=== PATIENT | female | born 1980 | race Caucasian/White ===

== ENCOUNTER 2020-01-14 12:29 | Emergency (ER) | payer OTHER, SELFPAY ==
[2020-01-14 12:48] VITALS: BP 145/88; PULSE 83; RESP 16; TEMP 36.6; O2SAT 97; BMI 35.0
--- NOTE | 2020-01-14 13:47 | PC.NURSE ---
covid swab done per order
--- NOTE | 2020-01-14 14:23 | ED_ITS ---
HPI - General Adult General Chief complaint: General Medical <HENRIETTA Randle Last Filed: 01/14/20 16:38> Stated complaint: MULTIPLE COMPLAINTS <HENRIETTA Randle Last Filed: 01/14/20 16:38> Time Seen by Provider: 01/14/20 13:30 <HENRIETTA Randle Last Filed: 01/14/20 16:38> Source: patient <HENRIETTA Randle Last Filed: 01/14/20 16:38> Mode of arrival: ambulatory <HENRIETTA Randle Last Filed: 01/14/20 16:38> Limitations: no limitations <HENRIETTA Randle Last Filed: 01/14/20 16:38> History of Present Illness HPI narrative: patient presents to ED sniffles and slight body aches. Patient would like to be tested for COVID-19 virus. Patient states her care home wants her to be tested due to exposure to a positive patron in the care home. Patient's secondary complaint is bilateral chronic knee pain due to severe arthritis and lateral meniscal tears in both knees. Patient show me MRI reading from radiologist in [place] with done in july with reading that indicates severe arthritis in both knees with lateral meniscus tears. Patient was doing physical rehab, narcotics, and pain management in [place] but had to relocate to [place]. <HENRIETTA Randle Last Filed: 01/14/20 16:38> Related Data Home medications: Previous Rx's Medication Instructions Recorded naproxen 500 mg PO BID PRN #20 tab 01/14/20 oxycodone-acetaminophen [Percocet] 1 tab PO Q8H PRN #12 tab 01/14/20 <HENRIETTA Randle Last Filed: 01/14/20 16:38> Allergies/adverse reactions: Allergies Allergy/AdvReac Type Severity Reaction Status Date / Time No Known Allergies Allergy Verified 01/14/20 12:47 <HENRIETTA Randle Last Filed: 01/14/20 16:38> Review of Systems Constitutional: Constitutional: Reports as per HPI, Reports no additional constitutional complaints, Reports body ache(s), Denies chills, Denies fever(s) and Denies headache(s) <HENRIETTA Randle Last Filed: 01/14/20 16:38> Eyes: Eyes: Reports as per HPI and Reports no additional eye complaints <HENRIETTA Randle - Last Filed: 01/14/20 16:38> ENT: Reports system reviewed and no additional complaints, except as documented, Reports as per HPI and Denies headache(s) <HENRIETTA Randle - Last Filed: 01/14/20 16:38> Comments: nasal congestion <HENRIETTA Randle - Last Filed: 01/14/20 16:38> Cardiovascular: Cardiovascular: Reports as per HPI and Reports no additional cardiovascular complaints <HENRIETTA Randle - Last Filed: 01/14/20 16:38> Respiratory: Respiratory: Reports as per HPI and Reports no additional respiratory complaints <HENRIETTA Randle - Last Filed: 01/14/20 16:38> Gastrointestinal: Gastrointestinal: Reports as per HPI and Reports no additional gastrointestinal complaints <HENRIETTA Radnle - Last Filed: 01/14/20 16:38> Musculoskeletal: Musculoskeletal: Reports no additional musculoskeletal complaints and Reports as per HPI <HENRIETTA Randle Last Filed: 01/14/20 16:38> Comments: Positive for bilateral knee pain <HENRIETTA Randle Last Filed: 01/14/20 16:38> Neurologic: Reports system reviewed and no additional complaints, except as documented, Reports as per HPI and Denies headache(s) <HENRIETTA Randle Last Filed: 01/14/20 16:38> Psychiatric: Psychiatric: Reports no additional psychiatric complaints and Reports as per HPI <HENRIETTA Randle Last Filed: 01/14/20 16:38> [facility] Past Medical History Medical History: Medical History (Updated 01/15/20 @ 00:00 by Felipe Loo) Healthy adult <HENRIETTA Randle - Last Filed: 01/14/20 16:38> Social History Social History: Social History Smoked in Last 30 Days: No Use of substances other than those prescribed or required for medical reasons: No Advance Directives: No Advance Directives Information Provided: No <HENRIETTA Randle Last Filed: 01/14/20 16:38> Physical Exam Vital Signs: Vital Signs: Last Vital Signs Temp 97.9 F 01/14/20 12:48 Pulse 83 01/14/20 12:48 Resp 16 01/14/20 12:48 BP 145/88 H 01/14/20 12:48 Pulse Ox 97 01/14/20 12:48 Body Mass Index 35.0 <HENRIETTA Randle - Last Filed: 01/14/20 16:38> Vital Signs: Last Vital Signs Temp 97.9 F 01/14/20 12:48 Pulse 83 01/14/20 12:48 Resp 16 01/14/20 12:48 BP 145/88 H 01/14/20 12:48 Pulse Ox 97 01/14/20 12:48 Body Mass Index 35.0 <Marquis Cary MD - Last Filed: 01/15/20 13:21> Const: General: cooperative, healthy appearing, comfortable, no acute distress, well developed and alert <HENRIETTA Randle - Last Filed: 01/14/20 16:38> HENMT: Head: Yes normal to inspection and Yes No palpable skull fracture present <HENRIETTA Randle - Last Filed: 01/14/20 16:38> Eyes: General: appearance normal, both eyes and all related structures <HENRIETTA Randle Last Filed: 01/14/20 16:38> Visual Griffiths: normal visual griffiths by confrontation <HENRIETTA Randle Last Filed: 01/14/20 16:38> Neck: Neck: Yes normal visual inspection, Yes full ROM, Yes no lymphad enopathy, Yes no meningeal signs, Yes trachea midline and No tender <HENRIETTA Randle - Last Filed: 01/14/20 16:38> Chest: Chest palpation & inspection: normal inspection of the chest, normal palpation of entire chest wall and no localized rib tenderness <HENRIETTA Randle Last Filed: 01/14/20 16:38> Resp: Effort & Inspection: normal respiratory effort and able to speak in complete sentences <HENRIETTA Randle Last Filed: 01/14/20 16:38> Auscultation: clear to auscultation bilaterally <HENRIETTA Randle Last Filed: 01/14/20 16:38> Cardio: Jugular venous distension: no JVD <HENRIETTA Randle Last Filed: 01/14/20 16:38> Heart sounds: S1 normal heart sound present and S2 normal heart sound present <Markie Spike, PA Kyleigh Last Filed: 01/14/20 16:38> GI: Inspection: Yes normal to inspection and No abdominal wall ecchymosis <Markie Spike, PA Kyleigh Last Filed: 01/14/20 16:38> Palpation (GI): Soft to palpation, not firm, nontender, no guarding and not rigid <Markie Spike, PA Kyleigh Last Filed: 01/14/20 16:38> : General: No CVA tenderness and Yes no CVA tenderness <HENRIETTA Randle Kyleigh Last Filed: 01/14/20 16:38> Back/Spine/Pelvis: Back: no CVA tenderness, No CVA tenderness and No back tenderness <EHNRIETTA Randle Kyleigh Last Filed: 01/14/20 16:38> Skin: General skin exam: no rashes or lesions noted <HENRIETTA Randle Kyleigh Last Filed: 01/14/20 16:38> Neuro: General: gait normal, no meningeal signs and CN's II-XI intact bilaterally <Markie Spike, PA Kyleigh Last Filed: 01/14/20 16:38> Cranial nerves: Yes CN's II-XII intact bilaterally <Markie Spike, PA Kyleigh Last Filed: 01/14/20 16:38> Extrem: Other: Knee tenderness on palpation. Negative for any swelling, erythema, or fluctuance of both knees or both lower extremities. Negative for any calf pain. Knees and legs negative for any warmth. Vascular and neuro e xam of lower extremities intact. <HENRIETTA Randle Kyleigh Last Filed: 01/14/20 16:38> General: Yes normal to inspection and Yes full ROM <HENRIETTA Randle Kyleigh Last Filed: 01/14/20 16:38> Psych: Appearance: grossly normal, well kempt and not disheveled <HENRIETTA Randle Kyleigh Last Filed: 01/14/20 16:38> Course Course Course Narrative: patient able to ambulate on her own. Patient is swabbed for COVID-19. Patient request Toradol injection for pain. Presently history & physical exam does not indicate septic arthritis, cellulitis, abscess, or DVT. Patient educated on self-isolation <HENRIETTA Randle - Last Filed: 01/14/20 16:38> I have reviewed the chart <Marquis Cary MD - Last Filed: 01/15/20 13:21> Reevaluation(s) Reevaluation #1: patient will be given referral to Orthopedic and discharged with Percocet and naproxen for pain. <HENRIETTA Randle - Last Filed: 01/14/20 16:38> Time: 14:56 <HENRIETTA Randle - Last Filed: 01/14/20 16:38> Medical Decision Making MDM Narrative Medical decision making narrative: bilateral knee arthritis. Viral syndrome <HENRIETTA Randle Last Filed: 01/14/20 16:38> Discharge Plan Discharge Clinical Impression: Degenerative arthritis of knee, bilateral, Acute viral syndrome <HENRIETTA Randle - Last Filed: 01/14/20 16:38> Patient Disposition: Home, Self-Care <HENRIETTA Randle - Last Filed: 01/14/20 16:38> Instructions: Osteoarthritis (ED), Viral Syndrome (ED) <HENRIETTA Randle - Last Filed: 01/14/20 16:38> Additional Instructions: return to ED for bilateral knee swelling, redness, swelling of legs, calf pain, chest pain, shortness of breath, coughing up blood, fever, chills, or any other concerning symptoms. <HENRIETTA Randle - Last Filed: 01/14/20 16:38> Prescriptions: New oxycodone-acetaminophen [Percocet] 5-325 mg tablet 1 tab PO Q8H PRN (Reason: pain) Qty: 12 RF: 0 naproxen 500 mg tablet 500 mg PO BID PRN (Reason: pain) Qty: 20 RF: 0 <HENRIETTA Randle - Last Filed: 01/14/20 16:38> Referrals: Bebo Baker MD [Physician] - 2 days ( Severe bilateral knee arthritis with chronic lateral meniscus tears.) <HENRIETTA Randle - Last Filed: 01/14/20 16:38> Interventions: ED Discharge Assessment Last Done: 01/14/20 15:02 <HENRIETTA Randle Last Filed: 01/14/20 16:38> Discharge Date/Time: 01/14/20 15:08 <HENRIETTA Randle - Last Filed: 01/14/20 16:38> Print Language: Kinyarwanda <HENRIETTA Randle - Last Filed: 01/14/20 16:38>
[2020-01-14] MEDS: Ketorolac Tromethamine 30 MG/ML VIAL IM (14:39)
--- NOTE | 2020-01-14 14:45 | PC.NURSE ---
pt medicated for bilat leg pain per order
== END 2020-01-14 15:08 | disposition home or self-care (01) ==
PROVIDERS: Physician Assistant; Emergency Provider Emergency Medicine
DX: B34.9 Viral infection, unspecified (principal); M17.0 Bilateral primary osteoarthritis of knee; Z20.828 Contact with and (suspected) exposure to other viral communicable diseases; Z79.899 Other long term (current) drug therapy
CPT/HCPCS: 96372; 99283; 99284; J1885; U0003

== ENCOUNTER 2020-01-21 14:13 | Outpatient (REF) | payer OTHER, SELFPAY ==
--- NOTE | 2020-01-21 14:13 | XR_ITS ---
EXAMINATION: XR BILATERAL KNEES AP STANDING XR BILATERAL KNEES CLINICAL INFORMATION: Bilateral knee pain. COMPARISON: None. TECHNIQUE: AP bilateral knees standing. 2 views each knee. FINDINGS: AP BILATERAL KNEES: There is bilateral varus knee deformity. There is severe loss of joint space lateral compartment with moderate enthesophyte left knee and [id number] loss of joint space with mild spurring lateral compartment right knee. No visible fracture or bony erosive changes seen. RIGHT KNEE: There is moderate suprapatellar effusion with a anterior superior patellar enthesophyte. No loose bodies seen. No bony erosive changes. LEFT KNEE: There is moderate enthesophyte along the patellofemoral compartment and small spur along the anterosuperior patella with mild suprapatellar joint effusion. No loose bodies visualized. There are no bony erosive changes. There is mild lateral patellar enthesophyte. XR/XR knee RT 2V IMPRESSION: Degenerative arthritic changes bilateral knee tricompartments, worse in the lateral compartment left knee. No loose body seen. There is bilateral suprapatellar joint effusion slightly greater in the right knee. There are mild bilateral varus deformities of the knees, slightly greater on the left than the right.
--- NOTE | 2020-01-21 14:13 | XR_ITS ---
EXAMINATION: XR BILATERAL KNEES AP STANDING XR BILATERAL KNEES CLINICAL INFORMATION: Bilateral knee pain. COMPARISON: None. TECHNIQUE: AP bilateral knees standing. 2 views each knee. FINDINGS: AP BILATERAL KNEES: There is bilateral varus knee deformity. There is severe loss of joint space lateral compartment with moderate enthesophyte left knee and [id number] loss of joint space with mild spurring lateral compartment right knee. No visible fracture or bony erosive changes seen. RIGHT KNEE: There is moderate suprapatellar effusion with a anterior superior patellar enthesophyte. No loose bodies seen. No bony erosive changes. LEFT KNEE: There is moderate enthesophyte along the patellofemoral compartment and small spur along the anterosuperior patella with mild suprapatellar joint effusion. No loose bodies visualized. There are no bony erosive changes. There is mild lateral patellar enthesophyte. XR/XR knee standing BI IMPRESSION: Degenerative arthritic changes bilateral knee tricompartments, worse in the lateral compartment left knee. No loose body seen. There is bilateral suprapatellar joint effusion slightly greater in the right knee. There are mild bilateral varus deformities of the knees, slightly greater on the left than the right.
--- NOTE | 2020-01-21 14:13 | XR_ITS ---
EXAMINATION: XR BILATERAL KNEES AP STANDING XR BILATERAL KNEES CLINICAL INFORMATION: Bilateral knee pain. COMPARISON: None. TECHNIQUE: AP bilateral knees standing. 2 views each knee. FINDINGS: AP BILATERAL KNEES: There is bilateral varus knee deformity. There is severe loss of joint space lateral compartment with moderate enthesophyte left knee and cyvj-wz-norhekdm loss of joint space with mild spurring lateral compartment right knee. No visible fracture or bony erosive changes seen. RIGHT KNEE: There is moderate suprapatellar effusion with a anterior superior patellar enthesophyte. No loose bodies seen. No bony erosive changes. LEFT KNEE: There is moderate enthesophyte along the patellofemoral compartment and small spur along the anterosuperior patella with mild suprapatellar joint effusion. No loose bodies visualized. There are no bony erosive changes. There is mild lateral patellar enthesophyte. XR/XR knee LT 2V IMPRESSION: Degenerative arthritic changes bilateral knee tricompartments, worse in the lateral compartment left knee. No loose body seen. There is bilateral suprapatellar joint effusion slightly greater in the right knee. There are mild bilateral varus deformities of the knees, slightly greater on the left than the right.
== END 2020-01-21 14:14 | disposition home or self-care (01) ==
LOC: HO.HOSX 14:13
PROVIDERS: PCP Physician Assistant; Visit Provider Physician Assistant
DX: M17.0 Bilateral primary osteoarthritis of knee (principal)
CPT/HCPCS: 20610; 73560; 73565; 99202; J1020

== ENCOUNTER 2020-01-21 15:31 | Emergency (ER) | payer OTHER, SELFPAY ==
[2020-01-21 16:01] VITALS: BP 112/87; PULSE 92; RESP 18; TEMP 36.4; O2SAT 98; BMI 33.9
--- NOTE | 2020-01-21 16:50 | ED_ITS ---
HPI - Extremity Injury (Lower) General Chief Complaint: Extremity Injury, Lower Stated Complaint: RIGHT KNEE PAIN Time Seen by Provider: 01/21/20 16:30 Source: patient Mode of arrival: ambulatory Limitations: no limitations History of Present Illness HPI Narrative: Patient is a 39-year-old female with a past medical history of bilateral knee pain, she states she just came from an appointment at orthopedics with Angelito Mireles where she was prescribed a cream which will not be ready for 1 week. She is looking for something to control her pain in the meanwhile. Patient states she has tried Motrin and Tylenol in the past and it does not work for her, denies taking Celebrex on a daily basis but states she came here last week and was able to get Percocet and naproxen which helped. She states she just moved here from [place] and is setting up an appointment with pain management. She had an MRI printout with her from [place] from July 2019 which described chronic knee issues. Related Data Home Medications Medication Instructions Recorded Confirmed amitriptyline 10 mg tablet 10 mg PO BEDTIME 01/21/20 aripiprazole 2 mg tablet 2 mg PO BEDTIME 01/21/20 dulaglutide 3 mg/0.5 mL 3 mg SUBCUT QWEEK 01/21/20 subcutaneous pen injector fluoxetine 20 mg capsule 20 mg PO DAILY 01/21/20 metformin 850 mg tablet 850 mg PO DAILY 01/21/20 Previous Rx's Medication Instructions Recorded naproxen 500 mg PO BID PRN #20 tab 01/14/20 oxycodone-acetaminophen [Percocet] 1 tab PO Q8H PRN #12 tab 01/14/20 celecoxib 200 mg capsule 200 mg PO BID 30 Days #60 cap 01/21/20 celecoxib [Celebrex] 200 mg PO BID #30 cap 01/21/20 Allergies Allergy/AdvReac Type Severity Reaction Status Date / Time No Known Allergies Allergy Verified 01/21/20 16:01 Review of Systems Review of Systems: See HPI [facility] Past Medical History Medical History Anxiety Depression Diabetes Healthy adult Social History Social History Alcohol intake: never Cigarettes Per Day: 3 Advance Directives: No Advance Directives Information Provided: Yes Current occupational status: unemployed Physical Exam Vital Signs: Vital Signs: Last Vital Signs Temp 97.6 F 01/21/20 16:01 Pulse 92 01/21/20 16:01 Resp 18 01/21/20 16:01 BP 112/87 01/21/20 16:01 Pulse Ox 98 01/21/20 16:01 Body Mass Index 33.9 Const: General: cooperative, healthy appearing, comfortable, no acute distress and well developed Nutritional Appearance: obese Orientation/consciousness: patient oriented x3 Limitations: no limitations HENMT: Head: Yes normal to inspection Eyes: General: appearance normal, both eyes and all related structures Neck: Neck: Yes normal visual inspection, Yes full ROM and Yes supple Resp: Effort & Inspection: normal respiratory effort and able to speak in complete sentences Neuro: General: patient oriented x3 Extrem: Other: TTP bilateral knees along the circumference of the patella, not along the joint lines or behind the knee, 3/5 strength and normal sensation General: Yes normal to inspection, Yes capillary refill normal, Yes no pedal edema, Yes no calf tenderness and Yes normal gait (limping) MDM - Extremity Injury (Lower) MDM Narrative Medical decision making narrative: 39-year-old female with chronic bilateral knee pain, according to records, she has osteoarthritis in both knees and Orthopedics is getting her a cream. I explained to patient that narcotics are not appropriate for a chronic illness but I can give her a Toradol injection today Celebrex. Recommended she be sure to follow-up with pain management. Discharge Plan Discharge Clinical Impression: Osteoarthritis of knees, bilateral Patient Disposition: Home, Self-Care Instructions: Osteoarthritis (ED) Additional Instructions: Please be sure to follow-up with your orthopedic doctor and pain management. Prescriptions: New celecoxib [Celebrex] 200 mg capsule 200 mg PO BID Qty: 30 RF: 0 No Action oxycodone-acetaminophen [Percocet] 5-325 mg tablet 1 tab PO Q8H PRN (Reason: pain) Qty: 12 RF: 0 naproxen 500 mg tablet 500 mg PO BID PRN (Reason: pain) Qty: 20 RF: 0 celecoxib [Celebrex] 200 mg capsule 200 mg PO BID 30 Days Qty: 60 RF: 0
[2020-01-21] MEDS: Ketorolac Tromethamine 30 MG/ML VIAL IM (17:22)
== END 2020-01-21 17:27 | disposition home or self-care (01) ==
PROVIDERS: Emergency Provider Emergency Medicine Emergency Medical Services; PCP Physician Assistant
DX: M17.0 Bilateral primary osteoarthritis of knee (principal); M25.561 Pain in right knee; Z79.899 Other long term (current) drug therapy
CPT/HCPCS: 96372; 99283; 99284; J1885

== ENCOUNTER → 2020-07-14 09:09 | Outpatient (BNVA) | payer OTHER, SELFPAY | PROVIDERS: Visit Provider Nurse Practitioner Family | DX: M17.0 Bilateral primary osteoarthritis of knee (principal); M25.561 Pain in right knee; M25.562 Pain in left knee; G89.29 Other chronic pain | CPT/HCPCS: 99202 ==

== ENCOUNTER 2020-08-25 05:45 | Outpatient (REF) | payer OTHER, SELFPAY ==
--- NOTE | ~2020-08-25 | FL_ITS ---
EXAMINATION: XR FLUOROSCOPY WITH IMAGES CLINICAL INFORMATION: Bilateral primary osteoarthritis of knee COMPARISON: None. TECHNIQUE: Fluoroscopy performed by Roz Charles NP. Fluoroscopy time: 0.4 minutes DAP: 2.91 Gycm2 Images: 4 FINDINGS: There are needles positioned along the medial and lateral cortex of distal femur and proximal tibia for pain management. There is significant loss of lateral compartment joint space with moderate periarticular spurring. There are no loose bodies. The soft tissues are unremarkable. No loose bodies seen. No joint effusion. FL/FL guidance in treatment room IMPRESSION: 1. Significant degenerative arthritic changes with periarticular spurring, lateral compartment, left knee. 2. No abnormal joint effusion or bony erosive changes.
== END 2020-08-25 05:46 | disposition home or self-care (01) ==
LOC: HO.RADIR 05:45
PROVIDERS: Visit Provider Anesthesiology
DX: M17.0 Bilateral primary osteoarthritis of knee (principal)
CPT/HCPCS: 64454; Q9967

== ENCOUNTER → 2020-09-01 09:40 | Outpatient (BNVA) | payer OTHER, SELFPAY | PROVIDERS: Visit Provider Nurse Practitioner Family ==